=== PATIENT | male | born 1950 | race Caucasian/White ===

== ENCOUNTER 2018-09-14 09:39 | Observation (INO) | payer MEDICARE, BC ==
[~2018-09-14] VITALS: Ht 182.9 cm; Wt 94.5 kg
[~2018-09-14 09:39] MED LIST: SYNTHROID PO
[2018-09-14 10:03] VITALS: BP 137/75
[2018-09-14] MEDS ORDERED: LEVO175T5 PO (10:12)
[2018-09-14] MEDS ORDERED: BIVALIRUDIN 250 MG ONE (12:30)
[2018-09-14] MEDS ORDERED: FENTANYL PF 100 MCG/2ML ONE (12:30)
[2018-09-14] MEDS ORDERED: TICAGRELOR 90 MG TABLET ONE (12:30)
[2018-09-14] MEDS ORDERED: HEPARIN 1,000 UNITS/ML, 10ML ONE (12:30)
[2018-09-14] MEDS ORDERED: MIDAZOLAM 1 MG/ML, 5ML ONE (12:30)
[2018-09-14] MEDS: SODIUM CHLORIDE 0.9% 1,000 ML IV SCH ×2 (13:21→20:34)
[2018-09-14 15:35] VITALS: BP 137/82
[2018-09-14] MEDS: METOPROLOL TARTRATE 25 MG TABLET PO SCH (18:00)
[2018-09-14 19:11] VITALS: BP 132/75
[2018-09-14] MEDS: TICAGRELOR 90 MG TABLET PO SCH (20:33)
[2018-09-14] MEDS ORDERED: ATORVASTATIN 40 MG TABLET PO SCH (21:00)
[2018-09-15 01:17] VITALS: BP 125/73
[2018-09-15 04:45] LABS: ANION GAP 6 mmol/L (5-15); CALCIUM 9.2 mg/dL (8.5-10.1); CHLORIDE 112 mmol/L (98-107); CREATININE 1.02 mg/dL (0.7-1.3)
[2018-09-15] MEDS: SODIUM CHLORIDE 0.9% 1,000 ML IV SCH (04:53)
[2018-09-15] MEDS: METOPROLOL TARTRATE 25 MG TABLET PO SCH (05:51)
[2018-09-15] MEDS ORDERED: TICA90TA PO (08:40)
[2018-09-15] MEDS ORDERED: ASPI81TA45 PO (08:40)
[2018-09-15] MEDS ORDERED: ATOR40TA78 PO (08:40)
[2018-09-15] MEDS ORDERED: LEVOTHYROXINE 175 MCG TABLET PO SCH (09:00)
[2018-09-15] MEDS ORDERED: ASPIRIN 81 MG TABLET EC PO SCH (09:00)
[2018-09-15 09:10] VITALS: BP 134/78
[2018-09-15] MEDS: TICAGRELOR 90 MG TABLET PO SCH (09:16)
== END 2018-09-14 13:21 | disposition home or self-care (01) ==
LOC: CACL 09:39 → UNDOADMOB 13:21 → ORIP 13:21 → DCLOUNGE 13:21 → 5SO 15:30 → ORIP 15:30 → DCLOUNGE 09-15 10:12 → 5SO 09-15 10:12 → UNDODISOB 09-15 10:30
PROVIDERS: ADMIT Internal Medicine Cardiovascular Disease; ATTEND Internal Medicine Cardiovascular Disease
DX: I25.10 Atherosclerotic heart disease of native coronary artery without angina pectoris (principal); I45.10 Unspecified right bundle-branch block; E03.9 Hypothyroidism, unspecified; M19.90 Unspecified osteoarthritis, unspecified site; G47.33 Obstructive sleep apnea (adult) (pediatric); Z87.891 Personal history of nicotine dependence; Z79.899 Other long term (current) drug therapy
CPT/HCPCS: 36415; 80048; 85014; 85018; 93005; 93458; 99156; 99157; C1725; C1769; C1874; C1887; C1894; C9600; G0378; J0583; J1644; J2250; J3010; Q9967

== ENCOUNTER 2020-11-13 10:09 | Observation (INO) | payer MEDICARE, BC ==
[~2020-11-13] VITALS: Ht 182.9 cm; Wt 95.5 kg
[~2020-11-13 10:09] MED LIST changes: +ASPI81TA45 PO; +ATOR40TA78 PO; +LEVO175T5 PO; +TICA90TA PO
[2020-11-13 10:33] VITALS: BP 137/85
[2020-11-13] MEDS ORDERED: SILD100T PO (10:46)
[2020-11-13] MEDS ORDERED: ATOR20TA37 PO (10:46)
[2020-11-13 10:56] LABS: BASOPHILS % (AUTO) 1 % (0-1); EOSINOPHILS % (AUTO) 1 % (1-7); LYMPHOCYTES % (AUTO) 21 % (22-44); MEAN CORPUSCULAR HEMOGLOBIN 31.4 pg (27.5-34.5); MEAN CORPUSCULAR HGB CONC 34.4 g/dL (33.2-36.2); MONOCYTES % (AUTO) 8 % (2-9); NEUTROPHILS % (AUTO) 70 % (42-75); PLATELET COUNT 177 x10^3/uL (130-400); RED BLOOD COUNT 4.94 x10^6/uL (4.38-5.82); RED CELL DISTRIBUTION WIDTH 13.5 % (9.4-14.8)
[2020-11-13 11:06] LABS: ANION GAP 4 mmol/L (5-15); CALCIUM 9.3 mg/dL (8.5-10.1); CHLORIDE 109 mmol/L (98-107); CREATININE 1.09 mg/dL (0.7-1.3)
[2020-11-13] MEDS ORDERED: VERAPAMIL 2.5 MG/ML, 2ML ONE (11:51)
[2020-11-13] MEDS ORDERED: LIDOCAINE-MPF 1%, 5ML ONE (11:51)
[2020-11-13] MEDS ORDERED: FENTANYL PF 100 MCG/2ML ONE (11:51)
[2020-11-13] MEDS ORDERED: MIDAZOLAM 1 MG/ML, 5ML ONE (11:51)
[2020-11-13] MEDS ORDERED: BIVALIRUDIN 250 MG ONE (11:51)
[2020-11-13] MEDS ORDERED: HEPARIN 1,000 UNITS/ML, 10ML ONE (11:51)
[2020-11-13] MEDS ORDERED: NITROGLYCERIN 5 MG/ML, 10ML ONE (11:52)
[2020-11-13] MEDS ORDERED: PRASUGREL 10 MG TABLET ONE ×2 (13:01→13:15)
[2020-11-13] MEDS ORDERED: ZOLPIDEM 5MG TABLET PO PRN (13:30)
[2020-11-13] MEDS ORDERED: BIVALIRUDIN 250 MG in SODIUM CHLORIDE 0.9% 50 ML IV SCH (13:30)
[2020-11-13] MEDS ORDERED: ACETAMINOPHEN 325 MG TABLET PO PRN (13:30)
[2020-11-13] MEDS: SODIUM CHLORIDE 0.9% 1,000 ML IV SCH ×2 (13:30→20:10)
[2020-11-13 14:20] VITALS: BP 128/78
[2020-11-13 18:43] VITALS: BP 144/86
[2020-11-13] MEDS: TICAGRELOR 90 MG TABLET PO SCH (20:09)
[2020-11-14 01:03] VITALS: BP 122/67
[2020-11-14 05:13] LABS: ANION GAP 7 mmol/L (5-15); CALCIUM 9.3 mg/dL (8.5-10.1); CHLORIDE 109 mmol/L (98-107)
[2020-11-14 05:15] LABS: CREATININE 0.94 mg/dL (0.7-1.3)
[2020-11-14 07:12] VITALS: BP 134/84
[2020-11-14] MEDS ORDERED: ASPIRIN 81 MG TABLET EC PO SCH (08:00)
[2020-11-14] MEDS ORDERED: TICA90TA PO (08:44)
[2020-11-14] MEDS ORDERED: PRASUGREL 10 MG TABLET PO SCH (09:00)
[2020-11-14] MEDS: TICAGRELOR 90 MG TABLET PO SCH (09:21)
[2020-11-14] MEDS ORDERED: ATORVASTATIN 40 MG TABLET PO SCH (21:00)
== END 2020-11-14 11:34 | disposition home or self-care (01) ==
LOC: CACL 10:09 → ORIP 13:04 → 5SO 13:07 → CACL 16:38 → 5SO 17:05
PROVIDERS: ADMIT Internal Medicine Cardiovascular Disease; ATTEND Internal Medicine Cardiovascular Disease
DX: I25.10 Atherosclerotic heart disease of native coronary artery without angina pectoris (principal); R93.1 Abnormal findings on diagnostic imaging of heart and coronary circulation; E78.1 Pure hyperglyceridemia; E03.9 Hypothyroidism, unspecified; M47.9 Spondylosis, unspecified; G47.33 Obstructive sleep apnea (adult) (pediatric); E78.5 Hyperlipidemia, unspecified; Z79.899 Other long term (current) drug therapy; Z95.5 Presence of coronary angioplasty implant and graft
CPT/HCPCS: 36415; 80048; 85025; 93005; 93458; 96360; 96361; C1725; C1769; C1874; C1887; C1894; C9600; G0378; J0583; J1644; J2250; J3010; J7030; Q9967